=== PATIENT | male | born 1950 | race Caucasian/White ===

== ENCOUNTER 2016-08-26 10:00 | Emergency (ER) | payer MEDICARE, OTHER ==
[2016-08-26] MEDS ORDERED: NO HOME MEDICATION XX (10:10)
== END 2016-08-26 10:53 ==
LOC: EDMED 10:00
PROC: 0HQ1XZZ Repair Face Skin, External Approach (ICD-10-PCS; principal; 2016-08-26)
DX: S01.81XA Laceration without foreign body of other part of head, initial encounter (principal); W22.8XXA Striking against or struck by other objects, initial encounter; Y92.830 Public park as the place of occurrence of the external cause; Z90.89 Acquired absence of other organs